=== PATIENT | female | born 1990 | race Caucasian/White ===

== ENCOUNTER 2018-09-08 20:59 | Emergency (ER) | payer OTHER ==
[~2018-09-08] VITALS: Ht 165.1 cm; Wt 99.8 kg
[2018-09-08 21:11] VITALS: BP 154/103
== END 2018-09-09 01:11 | disposition home or self-care (01) ==
LOC: EDBD 20:59 → ER 21:13
DX: S40.811A Abrasion of right upper arm, initial encounter (principal); S60.811A Abrasion of right wrist, initial encounter; S59.901A Unspecified injury of right elbow, initial encounter; M62.838 Other muscle spasm; V49.59XA Passenger injured in collision with other motor vehicles in traffic accident, initial encounter; Y93.89 Activity, other specified; Y99.8 Other external cause status; Y92.89 Other specified places as the place of occurrence of the external cause
CPT/HCPCS: 72125; 73070; 73110